=== PATIENT | female | born 1990 | race Caucasian/White ===

== ENCOUNTER 2024-12-06 11:36 | Observation (INO) | payer BC, SELFPAY ==
[2024-12-06 11:46] VITALS: BP 114/61; BMI 23.1
== END 2024-12-06 12:17 | disposition home or self-care (01) ==
LOC: LDRP 11:36
PROVIDERS: ADMITTING PHYSICIAN Obstetrics & Gynecology; FAMILY PHYSICIAN Family Medicine
DX: O36.8320 Maternal care for abnormalities of the fetal heart rate or rhythm, second trimester, not applicable or unspecified (principal); Z3A.27 27 weeks gestation of pregnancy
CPT/HCPCS: 76805; G0378

== ENCOUNTER → 2024-12-26 16:44 | Outpatient (REF) | payer BC, SELFPAY | LOC: RAD 16:44 | PROVIDERS: ATTENDING PHYSICIAN Obstetrics & Gynecology; FAMILY PHYSICIAN Family Medicine | DX: M79.605 Pain in left leg (principal) | CPT/HCPCS: 93971 ==

== ENCOUNTER 2025-03-13 14:43 | Inpatient (IN) | payer BC, SELFPAY ==
[2025-03-13 15:28] VITALS: BP 115/78; BMI 25.1
[2025-03-13 18:24] LABS: Hematocrit 29.4 % (37.0-47.0); Hemoglobin 9.4 g/dL (12.0-16.0); Mean Corp Hgb Conc. 32.0 g/dL (33.0-37.0); Mean Corpuscular Volume 74.6 fL (81.0-99.0); Nucleated Red Blood Cells % 0 %; Platelet Count 350 10^3/uL (130-400); Red Cell Dist. Width 15.9 % (11.5-14.5)
[2025-03-13] MEDS: LR 1000 IV ×2 (18:42→22:03)
[2025-03-13] MEDS: PITOCIN 30 UNITS/NSS 500 ML IV (20:13)
[2025-03-14] MEDS: STADOL 1 MG IV (00:51)
[2025-03-14] MEDS: SUBLIMAZE 100 MCG EPIDURAL (02:10)
[2025-03-14] MEDS: FENTANYL/BUPIVACAINE 100 EPIDURAL ×2 (02:10→09:52)
[2025-03-14] MEDS: LR 1000 IV ×2 (02:36→14:45)
[2025-03-14] MEDS: ZOFRAN 4 MG IV (12:13)
[2025-03-14] MEDS: TYLENOL 1000 MG PO (18:34)
[2025-03-14] MEDS: ZITHROMAX INFUSION 250 IV (18:34)
[2025-03-14] MEDS: BICITRA 30 ML PO (18:35)
[2025-03-14] MEDS: ANCEF 10 IV (18:35)
--- NOTE | 2025-03-14 21:48 | HPS.HSE ---
Family Physician
-
Family Physician: NO INTERVIEW UNKNOWN
Chief Complaint
-
Induction of labor for oligo
History of Present Illness
HPI: Patient is a 35yo @ 41.0 who presented from [facility] for induction of labor after new diagnosis of oligo. She was getting a routine NST/SHEELA for late term.
complications:
1. IUI
2. Anxiety
3. Traumatic Sacral Injury
labs: O+/Ab Neg/RPR NR/Ucx NG/HbsAg NEg/HIV NEG/RI/HCV Ab Neg'/ 1hr 148/3hr GTT/GBS Neg/NIPT Neg
PMHx: Anxiety, Traumatic injury to sacrum
Meds: PNV
Surghx: LASIK, wisdom teeth
FamHx: Non contributory
SocialHx: Neg x2
NKDA
Medical History
Past Medical History
Past Medical History: Reports Other
Past Surgical History: Reports Other
Social History
Tobacco: Non-smoker
Alcohol: None
Drug: None
Family History
Family History: Not pertinent
Allergies / Home Medications
Allergies reflects when Allergies were last updated in [employer].
Home Medications with original date entered in [employer]
Allergy/Medication List:
NKDA
Meds: PNV
Review of Systems
-
A 12 point ROS was completed and negative except as noted: Yes
Physical Exam
Vital Signs
Vital Signs
Temp Pulse Resp BP
98.5 F 79 16 115/78
03/13/25 15:28 03/13/25 15:28 03/13/25 15:28 03/13/25 15:28
Physical Exam
General: Well Developed and Well Nourished
HEENT: NormoCephalic
Respiratory: Non Labored Respirations
Cardiac: Regular Rhythm
Genito-urinary: Other (SVE /-2)
Neuro: Awake and Oriented
Psych: Calm
Laboratory Results
-
03/13/25 18:17
Impression/Plan
-
IMPRESSION:
Patient is a 35yo @41.0 IOL oligo, late term
PLAN:
- Patient admitted and was started on Pitocin as she was sheron too frequently for Cytotec. FHT were category 1
- GCCT collected since it was not collected with labs
--- NOTE | 2025-03-14 23:36 | OR.RPT ---
Operative Report
Operative Report
Procedure date: 03/14/2025
Preop diagnosis: IUP @41.1, oligo, arrest of descent, meconium stained amniotic fluid
Postop diagnosis: same, hemorrhage
Procedure: Primary low transverse section
Surgeon: Kaylee
Human Resources Department Supervisor: Kelley
Anesthesia: Spinal. Dr. Castillo
QBL: 1230mL
Findings: Viable male infant born at 1901, Apgars 8/9, meconium stained amniotic fluid. Normal appearing bilateral fallopian tubes and ovaries. Extension inferiorly on the left side, and extension laterally on the right. Patient given TXA for brisk
bleeding from the hysterotomy. Uterine atony responded to Methergine.
Complications: hemorrhage
Indication: Patient is a 35yo @41.1 who presented to Labor and Delivery on 03/13 for induction of labor for oligo. She was PNTC for testing since she was 41wks and was found to have oligo. On admission, she was 1/70/-2. She was sheron too
much for Cytotec, so she was started on Pitocin. She made progress throughout the night. She would intermittently have prolonged decelerations that resolved with position changes. Pitocin was turned off during decelerations. She spontaneously
ruptured at 0445. She continuing progressing and was 10/100/+2 at 1245. Patient started pushing and then labored down for a while. She resumed pushing again and took another break. While pushing, patient made very minimal to no decent of the
head. After over 2 hours of pushing, she had still not made progress. Patient was offered to continue pushing vs proceeding with a primary section and she desired to proceed with primary for arrest of descent. Risks, benefits and
alternatives were reviewed and consents signed. Anesthesia notified. Ancef and azithromycin were ordered for antibiotic prophylaxis.
Procedure: Patient was taken to the operating room where spinal anesthesia was administered and found to be adequate. 2g of Ancef and 500mg of Azithromycin was given for antibiotic prophylaxis. The abdomen was prepped with ChloraPrep. The patient
was draped in the normal sterile fashion. She was placed in the dorsal supine position with a left lateral tilt. A Pfannenstiel incision was made with a 10 blade and carried down to the fascia with a scalpel. Hemostasis achieved with Bovie. The
fascia was incised and dissected laterally with Lake scissors. The superior aspect of the fascia was grasped with Renee clamps. The underlying rectus fascia was sharply dissected with Lake scissors. In a similar fashion the inferior aspect of the
fascia was elevated with Renee clamps and the rectus muscle was dissected off with Lake scissors. The rectus muscles were down the midline to the level of the pubic symphysis with manual dissection. The peritoneum was bluntly entered and
extended using manual traction.
Johnson retractor and bladder blade were placed revealing good visualization of the bladder. The vesicouterine peritoneum was identified. A thin lower uterine segment was noted. The lower uterine segment was incised with a scalpel. Meconium
stained amniotic fluid noted at entry into the uterine cavity. The uterine incision was extended bluntly with lateral and upward traction.
The fetus was in cephalic presentation. The head was wedged in the pelvis. The head was elevated out of the pelvis with special attention paid to avoid using the uterine incision as a fulcrum. Gentle fundal pressure was applied once the head was
brought to the incision. The head delivered through the hysterotomy. The rest of the delivered without difficulty. Delayed cord clamping was performed. The was handed off to the international sales representative. IV oxytocin was started to facilitate
uterine contractions. The placenta was delivered with fundal massage and gentle downward traction. The uterus was exteriorized. There was an inferior extension on the left side of the hysterotomy and a lateral extension on the right side. Allis
clamps were placed at the apices of the hysterotomy. The inside of the uterus was wiped with a lap sponge to assure complete removal of placental membranes. Fundal massage was performed and the uterus was boggy. Methergine was given with improvement
in tone. The inferior extension was repaired with 0 and 2-0 Vicryl in a running locked fashion. Oozing areas were controlled with figure of eights. The uterine incision was closed with 0 Vicryl in a running locked fashion. A horizontal imbricating
stitch was done on the hysterotomy with 0 Vicryl. 1g of TXA was given for brisk bleeding from the hysterotomy. The right extension was repaired in a running locked fashion with 0-Vicryl. A figure of eight with 2-0 Vicryl was used to aid in
hemostasis. The hysterotomy was inspected and noted to be hemostatic. The uterus was placed back in the abdomen. Blood clots and fluid were wiped out of the abdomen and pelvis with moist laparotomy sponges. The hysterotomy was examined and was
hemostatic.
The rectus muscles were inspected and were hemostatic. The fascial layer was closed in a running continuous fashion using 0 Vicryl. The subcutaneous tissue was copiously irrigated and any small bleeding vessels were cauterized with Bovie cautery.
The subcutaneous tissue was reapproximated in a running continuous fashion with 2-0 Plain. The skin was closed with 4-0 Vicryl in a subcuticular fashion and covered with skin glue and a pressure dressing. The patient tolerated the procedure well.
All sponge and instrument counts were correct times two. The patient was taken to the recovery room in stable condition. Banuelos catheter was draining clear urine at the end of the procedure.
[2025-03-15] MEDS: TORADOL 15 MG IV ×4 (02:04→19:44)
[2025-03-15] MEDS: TYLENOL 650 MG PO (05:15)
[2025-03-15 06:28] LABS: Hematocrit 17.8 % (37.0-47.0); Hemoglobin 5.7 g/dL (12.0-16.0); Mean Corp Hgb Conc. 32.0 g/dL (33.0-37.0); Mean Corpuscular Volume 74.2 fL (81.0-99.0); Platelet Count 266 10^3/uL (130-400); Red Cell Dist. Width 16.2 % (11.5-14.5)
[2025-03-15] MEDS: PRENATAL PLUS 1 TABLET PO (08:00)
[2025-03-15] MEDS: COLACE 100 MG PO ×2 (08:00→19:44)
[2025-03-15 08:12] VITALS: BP 101/64
[2025-03-15 08:28] VITALS: BP 94/64
[2025-03-15 10:36] VITALS: BP 97/65
[2025-03-15 10:50] VITALS: BP 101/63
[2025-03-15 11:09] VITALS: BP 105/71
[2025-03-15 12:45] VITALS: BP 97/62
--- NOTE | 2025-03-15 15:16 | W.PN.ANS.POP ---
Anesthesia Post Operative
- Anesthesia Post Op Note
Vital Signs Stable-See Nursing Note: Yes
Airway Patent: Yes
Adequate Pain Control: Yes
Change in Mental Status: No
Current Postoperative Nausea & Vomiting: No
Anesthesia Complications: No
General Anesthetic Recall: No
Unplanned Admission: No
Post Op Hydration Adequate: Yes
[2025-03-15] MEDS: FLUSH (NSS) 3 FLUSH IV (19:47)
[2025-03-15] MEDS: ROXICODONE 5 MG PO (21:41)
[2025-03-15] MEDS: MYLICON 80 MG PO (23:40)
[2025-03-16] MEDS: MOTRIN 600 MG PO ×3 (04:51→20:18)
[2025-03-16] MEDS: FEOSOL PO ×2 (08:36→08:53)
[2025-03-16] MEDS: PRENATAL PLUS 1 TABLET PO (08:36)
[2025-03-16] MEDS: COLACE 100 MG PO ×2 (08:36→20:19)
[2025-03-16] MEDS: TYLENOL 650 MG PO (20:19)
[2025-03-17] MEDS: MYLICON 80 MG PO (00:58)
[2025-03-17] MEDS: TYLENOL 650 MG PO ×2 (03:52→09:57)
[2025-03-17] MEDS: MOTRIN 600 MG PO (03:52)
[2025-03-17 05:38] LABS: Hematocrit 25.5 % (37.0-47.0); Hemoglobin 8.3 g/dL (12.0-16.0)
[2025-03-17 07:52] LABS: Cord VBG B.E. - POC -4.2 mmol/L; Cord VBG HCO3 - POC 22 mmol/L; Cord VBG pCO2 - POC 42 mmHg; Cord VBG pH - POC 7.32; Cord VBG pO2 - POC < 18 mmHg
[2025-03-17 07:56] LABS: Cord ABG B.E. - POC -3.7 mmol/L; Cord ABG HCO3 - POC 23 mmol/L; Cord ABG pCO2 - POC 47 mmHg; Cord ABG pH - POC 7.30; Cord ABG pO2 - POC < 18 mmHg
[2025-03-17] MEDS: COLACE 100 MG PO (08:26)
[2025-03-17] MEDS: FEOSOL 325 MG PO (08:26)
[2025-03-17] MEDS: PRENATAL PLUS 1 TABLET PO (08:27)
--- NOTE | 2025-03-17 08:40 | W.DS.TRANS ---
DC Summary - Passenger Booking Clerk
-
Discharge Instructions:
Discharge Diagnosis/Procedures delivery
Instructions:
Stand-Alone Forms: [facility] Delivery
Changes to Home Medications: No
Discharge Medications:
DC Medications w/original date entered in [employer]
vitamin-ferrous fumarate 28 mg iron-folic acid 800 mcg tablet ( Tablet) 1 tab PO DAILY 12/06/24
acetaminophen 325 mg tablet 650 mg (2 x 325 mg) PO Q4HPRN PRN mild pain #0 tabs 03/17/25
docusate sodium 100 mg capsule 100 mg PO BID #0 caps 03/17/25
ferrous sulfate 325 mg (65 mg iron) tablet (FeroSul) 325 mg PO DAILY #0 tabs 03/17/25
ibuprofen 600 mg tablet 600 mg PO Q6HPRN PRN cramps #30 tabs 03/17/25
polyethylene glycol 3350 17 gram oral powder packet 17 g PO DAILYPRN PRN constipation #0 ea 03/17/25
sennosides 8.6 mg tablet (Vandana-rossy) 17.2 mg (2 x 8.6 mg) PO HSPRN PRN constipation #0 tabs 03/17/25
simethicone 80 mg chewable tablet 80 mg PO TIDPRN PRN flatulence #0 tabs 03/17/25
Home Medication Changes
Pending Results: No
Total time spent discharging patient (in min): 20
[2025-03-18 14:19] LABS: Syphilis/T. pallidum Ab Reflex Negative (Negative)
== END 2025-03-17 13:30 | disposition home or self-care (01) | DRG 787 ==
LOC: LDRP 14:43
PROVIDERS: Obstetrics & Gynecology; Student in an Organized Health Care Education/Training Program; ADMITTING PHYSICIAN Obstetrics & Gynecology
PROC: 3E033VJ Introduction of Other Hormone into Peripheral Vein, Percutaneous Approach (ICD-10-PCS; 2025-03-13)
PROC: 10D00Z1 Extraction of Products of Conception, Low, Open Approach (ICD-10-PCS; 2025-03-14)
PROC: 30233N1 Transfusion of Nonautologous Red Blood Cells into Peripheral Vein, Percutaneous Approach (ICD-10-PCS; 2025-03-15)
DX: O48.0 Post-term pregnancy (principal); D62 Acute posthemorrhagic anemia; O41.03X0 Oligohydramnios, third trimester, not applicable or unspecified; O72.1 Other immediate postpartum hemorrhage; Z3A.41 41 weeks gestation of pregnancy; Z37.0 Single live birth; O77.0 Labor and delivery complicated by meconium in amniotic fluid; O62.1 Secondary uterine inertia; F41.9 Anxiety disorder, unspecified; O99.344 Other mental disorders complicating childbirth; O76 Abnormality in fetal heart rate and rhythm complicating labor and delivery; O90.81 Anemia of the puerperium; N97.9 Female infertility, unspecified; Z82.49 Family history of ischemic heart disease and other diseases of the circulatory system; Z83.49 Family history of other endocrine, nutritional and metabolic diseases; Z82.0 Family history of epilepsy and other diseases of the nervous system
CPT/HCPCS: 59025; 76815; 85014; 85018; 85025; 85027; 86780; 86850; 86900; 86901; 86920; 87491; 87591; 88307; P9016

== ENCOUNTER → 2025-04-12 09:14 | Outpatient (REF) | payer BC, SELFPAY | LOC: RAD 09:14 | PROVIDERS: ATTENDING PHYSICIAN Advanced Practice Midwife; FAMILY PHYSICIAN Family Medicine | DX: N63.11 Unspecified lump in the right breast, upper outer quadrant (principal) | CPT/HCPCS: 76642 ==

== ENCOUNTER → 2025-04-18 10:03 | Outpatient (REF) | payer BC, SELFPAY | LOC: WDC 10:03 | PROVIDERS: ATTENDING PHYSICIAN Obstetrics & Gynecology | DX: N63.10 Unspecified lump in the right breast, unspecified quadrant (principal) | CPT/HCPCS: 76642 ==